=== PATIENT | male | born 1985 | race Hispanic/Latino ===

== ENCOUNTER 2020-02-18 16:56 | Emergency (ER) | payer BC, OTHER ==
[~2020-02-18] VITALS: Ht 152.4 cm; Wt 86.2 kg
[2020-02-18] MEDS ORDERED: ACETAMINOPHEN 325 MG TAB PO NR (17:30)
--- NOTE | 2020-02-18 18:00 | Diagnostic Imaging Report ---
EXAMINATION: CHEST SINGLE (PORTABLE) INDICATION: Stomach pain. Fever. COMPARISON: None FINDINGS: TUBES and LINES: None. LUNGS: Subtle patchy density in the right lung base associated with mild elevation of the right hemidiaphragm may represent atelectasis, however, cannot exclude focus of developing infection in the proper clinical setting. PLEURA: No pleural effusion or pneumothorax. HEART AND MEDIASTINUM: The cardiomediastinal silhouette is unremarkable. BONES AND SOFT TISSUES: No acute osseous lesion. Remote healed fracture of the right clavicle. UPPER ABDOMEN: No free air under the diaphragm. IMPRESSION: Right basilar atelectasis versus developing infection. Consider chest PA and lateral views for further evaluation of patient's condition permits. Signed by: Dr. Malika Andrews M.D. on 02/18/2020 5:57 PM
[2020-02-18 18:08] LABS: STREPTOCOCCUS GRP A ANTIGEN NEGATIVE (NEGATIVE)
[2020-02-18 18:11] LABS: INFLUENZAE A&B ANTIGEN (RAPID) NEGATIVE (NEGATIVE)
--- NOTE | 2020-02-18 18:18 | NUR ---
Anthony RAJAN AT BEDSIDE SPEAKING WITH PATIENT REGARDING DISCHARGE
== END 2020-02-18 18:34 | disposition home or self-care (01) ==
LOC: ER 16:56
DX: R50.9 Fever, unspecified (principal); R10.84 Generalized abdominal pain; M54.5 Low back pain; B34.9 Viral infection, unspecified; N28.9 Disorder of kidney and ureter, unspecified
CPT/HCPCS: 71045; 83518; 87070; 87400; 99284

== ENCOUNTER 2024-05-04 21:00 | Emergency (ER) | payer SELFPAY ==
[~2024-05-04] VITALS: Ht 167.6 cm; Wt 86.2 kg
[2024-05-04] MEDS ORDERED: ONDANSETRON HCL INJ 2MG/ML 2ML 2 MG/ML VIAL ONE (21:26)
[2024-05-04] MEDS: ONDANSETRON HCL INJ 2MG/ML 2ML 2 MG/ML VIAL IV STA (21:30)
[2024-05-04 21:37] LABS: BASOPHILS % 0.4 % (0.0-1.0); HEMOGLOBIN 14.3 g/dL (14.0-18.0); LYMPHOCYTES # (AUTO) 0.2 (1.0-3.2); LYMPHOCYTES % 5.3 % (18.0-39.1); MEAN CORPUSCULAR HEMOGLOBIN 27.6 pg (28-32); MEAN CORPUSCULAR HGB CONC 34.9 g/dL (31-35); MEAN CORPUSCULAR VOLUME 79.2 fL (81-99); MONOCYTES # (AUTO) 0.2 (0.2-0.8); MONOCYTES % 4.6 % (4.4-11.3); NEUTROPHILS # (AUTO) 4.1 (2.1-6.9); NEUTROPHILS % 89.5 % (38.7-80.0); PLATELET COUNT 166 x10e3/uL (140-360); RED BLOOD COUNT 5.18 x10e6/uL (4.3-5.7); RED CELL DISTRIBUTION WIDTH 12.7 % (11.7-14.4); WHITE BLOOD COUNT 4.53 x10e3/uL (4.8-10.8)
[2024-05-04] MEDS ORDERED: SODIUM CHLORIDE 0.9% 1000ML 1,000 ML ONE (21:42)
[2024-05-04 21:43] LABS: BILIRUBIN,URINE NEGATIVE (NEGATIVE); COLOR,URINE YELLOW (YELLOW); GLUCOSE, URINE NEGATIVE (NEGATIVE); KETONES,URINE NEGATIVE (NEGATIVE); LEUKOCYTE ESTERASE ,URINE NEGATIVE (NEGATIVE); NITRITE,URINE NEGATIVE (NEGATIVE); PH,URINE 5.5 (5 - 7); PROTEIN,URINE DIPSTICK 2+ (NEGATIVE); URINE UROBILINOGEN 1 mg/dL (0.2 - 1)
[2024-05-04 21:45] LABS: BACTERIA,URINE MODERATE /HPF; CLARITY,URINE HAZY (CLEAR); EPITHELIAL CELLS,URINE FEW /LPF; RBC,URINE 0-5 /HPF (0-5); WBC,URINE (MAN) 0-5 /HPF (0-5)
[2024-05-04 21:46] LABS: AMORPHOUS SEDIMENT,URINE MODERATE (FEW)
[2024-05-04] MEDS: SODIUM CHLORIDE 0.9% 1000ML 1,000 ML IV STA (21:46)
[2024-05-04] MEDS: ACETAMINOPHEN 325 MG TAB PO STA (21:46)
[2024-05-04] MEDS: SODIUM CHLORIDE 0.9% 1000ML 2,000 ML IV STA (21:46)
[2024-05-04 21:58] LABS: ALBUMIN 3.9 g/dL (3.5-5.0); ALBUMIN/GLOBULIN RATIO 0.9 (0.8-2.0); ANION GAP 18.5 mmol/L (8-16); BILIRUBIN,TOTAL 0.9 mg/dL (0.2-1.2); CALCIUM 9.2 mg/dL (8.4-10.2); CREATININE, SERUM 1.41 mg/dL (0.72-1.25); POTASSIUM 3.5 mmol/L (3.5-5.1); TOTAL PROTEIN 8.1 g/dL (6.5-8.1)
[2024-05-04 22:01] LABS: STREPTOCOCCUS GRP A ANTIGEN NEGATIVE (NEGATIVE)
[2024-05-04] MEDS ORDERED: IOPAMIDOL 370 MG/ML 100 ML INFUS..BTL INJ ONE (22:10)
[2024-05-04 22:17] LABS: INFLUENZAE A&B ANTIGEN (RAPID) NEGATIVE (NEGATIVE)
[2024-05-04 22:36] LABS: TROPONIN I 0.074 ng/mL (0-0.300)
[2024-05-04] MEDS: IBUPROFEN 600 MG TAB PO STA (22:40)
[2024-05-05 00:16] VITALS: TEMP 99.2
[2024-05-05 00:30] VITALS: PULSE 82; RESP 17
[2024-05-05] MEDS ORDERED: ONDANSETRON ODT4 MG PO (00:34)
[2024-05-05] MEDS ORDERED: PROTONIX20 MG PO (00:34)
[2024-05-05] MEDS ORDERED: AMOX TR-K CLV1 EAC2 PO (00:34)
[2024-05-05 01:00] VITALS: BP 136/89; O2SAT 100
== END 2024-05-05 00:52 | disposition home or self-care (01) ==
LOC: ER 21:05
DX: E86.0 Dehydration (principal); N28.9 Disorder of kidney and ureter, unspecified; Z11.52 Encounter for screening for COVID-19; Z59.6 Low income
CPT/HCPCS: 36415; 74177; 80053; 81001; 82550; 83518; 83605; 83690; 84484; 85025; 87040; 87070; 87400; 93005; 99284; J2405; J2543; J7030; Q9967; U0002